=== PATIENT | female | born 1940 | race Caucasian/White ===

== ENCOUNTER 2021-12-02 08:00 | Outpatient (CLI) | payer MEDICARE, OTHER | END 2021-12-02 23:59 | disposition home or self-care (01) | LOC: LAB.N 08:00 | PROVIDERS: ATTEND Family Medicine | DX: N39.0 Urinary tract infection, site not specified (principal) | CPT/HCPCS: 87086 ==

== ENCOUNTER 2022-09-06 08:00 | Outpatient (CLI) | payer MEDICARE, OTHER | END 2022-09-06 23:59 | disposition home or self-care (01) | LOC: LAB.N 08:00 | PROVIDERS: ATTEND Physician Assistant Medical | DX: R31.9 Hematuria, unspecified (principal) | CPT/HCPCS: 87086 ==

== ENCOUNTER 2022-12-13 15:36 | Outpatient (CLI) | payer MEDICARE, OTHER | END 2022-12-13 23:59 | disposition critical access hospital (66) | LOC: EMS 15:36 | DX: M54.50 Low back pain, unspecified (principal); R11.2 Nausea with vomiting, unspecified; I10 Essential (primary) hypertension; F03.90 Unspecified dementia, unspecified severity, without behavioral disturbance, psychotic disturbance, mood disturbance, and anxiety | CPT/HCPCS: A0425; A0429 ==

== ENCOUNTER 2022-12-13 15:55 | Emergency (ER) | payer MEDICARE, OTHER ==
[2022-12-13] MEDS ORDERED: iohexoL-300 100 ML VIAL ONE (16:12)
--- NOTE | 2022-12-13 16:15 | ED Physician Documentation ---
History of Present Illness - Stated complaint Stated Complaint: N/V - Chief complaint Chief Complaint: Abd Pain - History obtained from History obtained from: Patient, EMS - History of Present Illness Timing: Today Pain level max: 2 Pain level now: 2 - Additonal information Additional information: Patient is an 82-year-old female who has dementia and lives at a memory care facility. Reportedly she had emesis x1 today. EMS states that the memory care facility reported a Tmax of 101. Patient is unable to give any history. EMS states the facility stated the patient had back pain as well. The patient states that she sometimes feels back pain but does not feel any back pain currently. When asked again she points down near the sacrum. She does reportedly have a history of a AAA. She has been hypertensive today as well. Unclear if she got her medications today or not because of the emesis. Patient has no complaints currently. She is a DNR. Review of Systems Unable to obtain: Dementia Respiratory: denies: Cough GI: reports: Vomiting. denies: Abdominal Pain, Diarrhea, Hematemesis, Bloody / black stool PD PAST MEDICAL HISTORY - Past Medical History Past Medical History: Yes Cardiovascular: Hypertension, Other (AAA) - Present Medications Home Medications: Ambulatory Orders Medication Instructions Recorded Confirmed Ondansetron Odt [Zofran] 4 mg TL Q6H PRN #10 tablet 12/13/22 - Allergies Allergies/Adverse Reactions: Allergies Allergy/AdvReac Type Severity Reaction Status Date / Time codeine Allergy Anaphylaxis Verified 12/13/22 16:04 Penicillins Allergy Anaphylaxis Verified 12/13/22 16:04 Sulfa (Sulfonamide Allergy Anaphylaxis Verified 12/13/22 16:04 Antibiotics) - Living Situation Living Arrangement: reports: [facility] - Social History Does the pt smoke?: No Does the pt have substance abuse?: No - Family History Family history: reports: Non contributory PD ED PE NORMAL - Vitals Vital signs reviewed: Yes - General General: No acute distress, Well developed/nourished, Other (alert, oriented to person only, baseline per EMS/[facility]) - HEENT HEENT: Atraumatic, PERRL, Moist mucous membranes - Neck Neck: Supple, no meningeal sign - Cardiac Cardiac: RRR, Strong equal pulses - Respiratory Respiratory: No respiratory distress, Clear bilaterally - Abdomen Abdomen: Soft, Non tender, Non distended - Derm Derm: Warm and dry, No rash - Extremities Extremities: No edema - Neuro Neuro: Other (alert, pleasant) Results - Vitals Vitals: Vital Signs - 24 hr 12/13/22 12/13/22 12/13/22 16:00 17:31 17:38 Temperature 36.6 C Heart Rate 87 94 86 Respiratory 20 Rate Blood Pressure 203/88 H 162/82 H O2 Saturation 99 Oxygen O2 Source Room air - Labs Labs: Laboratory Tests 12/13/22 12/13/22 12/13/22 16:12 16:12 16:59 WBC 10.5 RBC 3.66 L Hgb 10.3 L Hct 33.0 L MCV 90.2 MCH 28.1 MCHC 31.2 L RDW 15.7 H Plt Count 224 MPV 9.2 Neut # (Auto) 8.6 H Lymph # (Auto) 1.1 L Cedar # (Auto) 0.6 Eos # (Auto) 0.1 Baso # (Auto) 0.1 Absolute Nucleated RBC 0.00 Nucleated RBC % 0.0 Sodium 139 Potassium 4.0 Chloride 101 Carbon Dioxide 28 Anion Gap 10.0 BUN 26 H Creatinine 1.2 H Estimated GFR (MDRD) 43 L Glucose 112 H Calcium 9.3 Total Bilirubin 0.9 AST 21 ALT 18 Alkaline Phosphatase 106 Total Protein 7.6 Albumin 4.1 Globulin 3.5 Albumin/Globulin Ratio 1.2 Lipase 38 Urine Color YELLOW Urine Clarity HAZY Urine pH 6.5 Ur Specific [place] 1.010 Urine Protein TRACE Urine Glucose (UA) NEGATIVE Urine Ketones NEGATIVE Urine Occult Blood SMALL H Urine Nitrite NEGATIVE Urine Bilirubin NEGATIVE Urine Urobilinogen 0.2 (NORMAL) Ur Leukocyte Esterase TRACE H Urine RBC 6-10 H Urine WBC 4-5 Ur Squamous Epith Cells MOD Squamous H Urine Bacteria Few Ur Microscopic Review INDICATED Urine Culture Comments NOT INDICATED - Rads (name of study) CT angio abd/pelvis Relevant Findings:: Final report received, See rad report PD Medical Decision Making - ED course Complexity details: reviewed results, re-evaluated patient, considered differential, d/w patient ED course: Patient is an 82-year-old female who experienced vomiting earlier today. She did have 1 episode of emesis here. She feels better after Zofran and is tolerating p.o. without difficulty. Her CBC shows a mild anemia. Chemistry does not show any acute abnormalities. Urinalysis appears contaminated. She is not having any symptoms of UTI. CT of the abdomen pelvis was performed, this does show a abdominal aortic aneurysm, over 8 cm in size. She has undergone prior repair of this, but there may be a small endovascular leak. The patient states she does not want to have any further surgeries. I spoke with her son, Epifanio, he states that this has been discussed with her vascular surgeon, Dr. Mendoza at [facility]. He states that she would be a poor surgical candidate and he would not recommend any further surgery on the patient. The patient and family do understand that an endovascular leak and an aortic aneurysm the size will likely kill the patient. Patient is comfortable being DNR, comfort care p er her POLST form and conversation with patient and family. The vomiting appears likely secondary to a viral illness. This document was made in part using voice recognition software. While efforts are made to proofread this document, sound alike and grammatical errors may occur. Departure - Departure Disposition: 01 Home, Self Care Clinical Impression: Vomiting Qualifiers: Vomiting type: unspecified Nausea presence: with nausea Qualified Code(s): R11.2 - Nausea with vomiting, unspecified AAA (abdominal aortic aneurysm) Qualifiers: Abdominal aorta location: unspecified Presence of rupture: unspecified whether ruptured Qualified Code(s): I71.40 - Abdominal aortic aneurysm, without rupture, unspecified Condition: Good Instructions: ED Nausea Vomiting Follow-Up: your,doctor in 1 week [Other] Prescriptions: Ondansetron Odt [Zofran] 4 mg TL Q6H PRN #10 tablet PRN Reason: Nausea / Vomiting Comments: [facility] Please follow-up with your doctor for further care. Your laboratory testing does not show any acute abnormalities today. Your CT scan shows a possible leak around your graft repair and your abdominal aortic aneurysm. I discussed this with your son, Epifanio, he states that this has been discussed with Dr. Mendoza, your vascular surgeon who states that you would not be a surgical candidate. You have indicated you do not want surgery either for this. Your CT reading is below. EXAM: [id number] CT/ABPEANG ([id number]) PROCEDURE: CT angiogram abdomen and pelvis with contrast INDICATIONS: abd/back pain CONTRAST: 100ml omni 300 TECHNIQUE: After the administration of intravenous contrast, 2.5 mm thick sections acquired from the diaphragm to the symphysis. 10 mm maximum-intensity projection (MIP) reformats were then acquired. For radiation dose reduction, the following was used: automated exposure control, adjustment of mA and/or kV according to patient size. COMPARISON: None available FINDINGS: Image quality: Excellent. Large 0.3 x 8.4 cm abdominal aortic aneurysm excluded by aortobiiliac endograft is noted to. There is enhancement in the excluded aneurysm, consistent with endoleak. It is uncertain if the endoleak arises from the graft itself or from collateral [place] vessels. Termination of the graft and the iliac vessels appears appropriate. Appropriate flow present in the common femoral and superficial femoral arteries proximally. Otherwise, degenerative disc disease and arthropathy is noted lower lumbar spine. Multiple diverticuli impression the sigmoid colon without evidence of diverticulitis. The visualized visceral organs are unremarkable. IMPRESSION: Patent aortobiiliac endograft. Excluded large abdominal aortic aneurysm does show internal enhancement, consistent with endoleak either arising from the graft itself or collateral [place] vessels. Discharge Date/Time: 12/13/22 19:09
[2022-12-13 16:19] LABS: BASOPHILS # (AUTO) 0.1 10^3/uL (0.0-0.1); BASOPHILS % (AUTO) 0.5 %; EOSINOPHILS # (AUTO) 0.1 10^3/uL (0.0-0.7); HGB - HEMOGLOBIN 10.3 g/dL (12.0-16.0); LYMPHOCYTES # (AUTO) 1.1 10^3/uL (1.5-3.5); LYMPHOCYTES % (AUTO) 10.5 %; MEAN CORPUSCULAR HEMOGLOBIN 28.1 pg (27.0-31.0); MEAN CORPUSCULAR HGB CONC 31.2 g/dL (32.0-36.0); MEAN CORPUSCULAR VOLUME 90.2 fL (81.0-99.0); MEAN PLATELET VOLUME 9.2 fL (7.9-10.8); MONOCYTES # (AUTO) 0.6 10^3/uL (0.0-1.0); MONOCYTES % (AUTO) 6.1 %; NEUTROPHILS # (AUTO) 8.6 10^3/uL (1.5-6.6); NEUTROPHILS % (AUTO) 81.7 %; PLT - PLATELET COUNT 224 10^3/uL (130-450); RED BLOOD COUNT 3.66 10^6/uL (4.20-5.40); RED CELL DISTRIBUTION WIDTH 15.7 % (12.0-15.0); WHITE BLOOD COUNT 10.5 x10^3/uL (4.8-10.8)
[2022-12-13 16:35] LABS: ALBUMIN 4.1 g/dL (3.2-5.5); ALBUMIN/GLOBULIN RATIO 1.2 (1.0-2.2); BILIRUBIN,TOTAL 0.9 mg/dL (0.2-1.0); CALCIUM 9.3 mg/dL (8.5-10.3); CREATININE 1.2 mg/dL (0.4-1.0); TOTAL PROTEIN 7.6 g/dL (6.7-8.2)
[2022-12-13] MEDS ORDERED: iohexoL-300 100 ML VIAL IVP ONE (16:59)
[2022-12-13 17:11] LABS: BILIRUBIN,URINE NEGATIVE (NEGATIVE); GLUCOSE, URINE (UA) NEGATIVE (NEGATIVE); KETONES,URINE (UA) NEGATIVE (NEGATIVE); LEUKOCYTE ESTERASE, URINE TRACE (NEGATIVE); NITRITE,URINE NEGATIVE (NEGATIVE); OCCULT BLOOD,URINE SMALL (NEGATIVE); PH,URINE 6.5 PH (5.0-7.5); PROTEIN,URINE TRACE mg/dL (NEGATIVE); UROBILINOGEN,URINE 0.2 (NORMAL) E.U./dL (NORMAL)
[2022-12-13 17:13] LABS: CLARITY,URINE HAZY (CLEAR)
[2022-12-13] MEDS ORDERED: METOPROLOL 5 MG/5 ML VIAL IVP STA (17:18)
[2022-12-13 17:25] LABS: BACTERIA,URINE Few /HPF (None Seen); SQUAMOUS EPITHELIAL CELL,UR MOD Squamous (<= Few)
--- NOTE | 2022-12-13 17:27 | CT Report ---
PROCEDURE: CT angiogram abdomen and pelvis with contrast INDICATIONS: abd/back pain CONTRAST: 100ml omni 300 TECHNIQUE: After the administration of intravenous contrast, 2.5 mm thick sections acquired from the diaphragm t o the symphysis. 10 mm maximum-intensity projection (MIP) reformats were then acquired. For radiati on dose reduction, the following was used: automated exposure control, adjustment of mA and/or kV ac cording to patient size. COMPARISON: None available FINDINGS: Image quality: Excellent. Large 0.3 x 8.4 cm abdominal aortic aneurysm excluded by aortobiiliac endograft is noted to. There is enhancement in the excluded aneurysm, consistent with endoleak. It is uncertain if the endoleak lucie es from the graft itself or from collateral [place] vessels. Termination of the graft and the iliac ve ssels appears appropriate. Appropriate flow present in the common femoral and superficial femoral art eries proximally. Otherwise, degenerative disc disease and arthropathy is noted lower lumbar spine. Multiple diverticul i impression the sigmoid colon without evidence of diverticulitis. The visualized visceral organs are unremarkable. IMPRESSION: Patent aortobiiliac endograft. Excluded large abdominal aortic aneurysm does show internal enhancement, consistent with endoleak e ither arising from the graft itself or collateral [place] vessels. Reviewed by: Eduin Gee MD on 12/13/2022 4:25 PM [facility] Approved by: Eduin Gee MD on 12/13/2022 4:25 PM [facility] Station ID: [id number]
[2022-12-13 17:32] VITALS: BP 162/82
[2022-12-13] MEDS ORDERED: ONDANSETRON 4 MG/2 ML VIAL IVP STA (17:52)
== END 2022-12-13 19:09 | disposition home or self-care (01) ==
LOC: EDUNIT# → ED 15:55
DX: I71.40 Abdominal aortic aneurysm, without rupture, unspecified (principal); R11.2 Nausea with vomiting, unspecified; F03.90 Unspecified dementia, unspecified severity, without behavioral disturbance, psychotic disturbance, mood disturbance, and anxiety; I10 Essential (primary) hypertension
CPT/HCPCS: 36415; 74174; 80053; 81001; 83690; 85025; 96374; 96375; 99284; Q9967; 81003; 87086

== ENCOUNTER 2022-12-13 19:01 | Outpatient (CLI) | payer MEDICARE, OTHER | END 2022-12-13 23:59 | disposition home or self-care (01) | LOC: EMS 19:01 | PROVIDERS: ATTEND Emergency Medicine | DX: R41.0 Disorientation, unspecified (principal); I10 Essential (primary) hypertension; R11.10 Vomiting, unspecified; F03.90 Unspecified dementia, unspecified severity, without behavioral disturbance, psychotic disturbance, mood disturbance, and anxiety | CPT/HCPCS: A0425; A0428 ==

== ENCOUNTER 2023-01-09 10:44 | Outpatient (CLI) | payer MEDICARE, OTHER ==
[2023-01-09] MEDS ORDERED: iohexoL-300 100 ML VIAL ONE (10:55)
[2023-01-09] MEDS ORDERED: iohexoL-300 100 ML VIAL IVP ONE (11:47)
--- NOTE | 2023-01-09 14:04 | CT Report ---
PROCEDURE: IVP INDICATIONS: HIST OF BLADDER CA CONTRAST: 140ml omni 300 TECHNIQUE: After the administration of intravenous contrast, 5 mm thick sections acquired from the diaphragms to the symphysis. 5 mm thick coronal and sagittal reformats were acquired. For radiation dose reducti on, the following was used: automated exposure control, adjustment of mA and/or kV according to yury ent size. COMPARISON: 12/13/2022 FINDINGS: Image quality: Excellent. Urinary system: The right kidney is diminutive. The left is normal size the right has a mildly delaye d nephrogram and contrast excretion. Nonenhancing 0.9 cm left posterior cortical renal cyst. No suspi cious enhancing masses or complex cysts. No hydronephrosis, retained intrarenal calculus, hydroureter , or ureteral calculus. No calculi in the undistended precontrast urinary bladder. No visible wall th ickening in the partially filled urinary bladder. OTHER Lung bases and heart: Descending thoracic aorta is ectatic measuring 3.4 cm in diameter. Lung bases a re clear. Heart is enlarged and there is moderate coronary artery calcification and aortic valvular c alcification. Liver: No masses. Gallbladder and biliary tree: Normal. Spleen: No splenomegaly. Pancreas: Normal. Adrenals: No nodules. Bowel and peritoneum: No bowel distension. No pathologic free fluid. Extensive sigmoid diverticulosis . Abdominal Lymph nodes: A 7 mm aortocaval node, 06/22 is nonspecific. No other retroperitoneal adenopa thy. Vessels: There is a large, known abdominal aortic aneurysm. The hernia sac measures 9.3 cm in AP diam eter, 9.5 cm transversely, and 13.6 cm in the CC direction. It begins at the level of the renal arter ies. An aortobiiliac stent begins above the level of the renal arteries which are stented. There is a lso an SMA origin stent. There is an oblong focus of contrast enhancement within the hernia sac, like ly arising from the left renal stent origin or a feeding lumbar vessel. Reproductive organs: The uterus is absent. Pelvic Lymph nodes: No enlarged lymph nodes or pelvic masses. Bones: No aggressive osseous abnormality. Other: None. IMPRESSION: 1. There has been increase in AP and transverse diameter of the abdominal aortic aneurysm with a know n endoleak (type I or type II) since the prior study by 8 mm AP diameter and 7 mm transversely. This is significant given short (4 weeks) time interval. Urgent vascular or interventional surgery consult is recommended. 2. Nonspecific, 7 mm aortocaval lymph node. No other suspicious adenopathy in the abdomen or pelvis. 3. Right renal atrophy and delayed function suggesting significantly decreased blood flow secondary t o stent placement. 4. Report alert called to the office of the ordering provider. Reviewed by: Sarah Brooks MD on 01/09/2023 2:02 PM PDT Approved by: Sarah Brooks MD on 01/09/2023 2:02 PM PDT Station ID: [id number]
== END 2023-01-09 10:45 | disposition home or self-care (01) ==
LOC: DI 10:44
PROVIDERS: ATTEND Urology
DX: I71.40 Abdominal aortic aneurysm, without rupture, unspecified (principal); N26.1 Atrophy of kidney (terminal)
CPT/HCPCS: 74178; Q9967

== ENCOUNTER 2023-01-09 10:44 | Outpatient (CLI) | payer MEDICARE, OTHER ==
[2023-01-09 11:04] LABS: BILIRUBIN,URINE NEGATIVE (NEGATIVE); GLUCOSE, URINE (UA) NEGATIVE (NEGATIVE); KETONES,URINE (UA) TRACE mg/dL (NEGATIVE); LEUKOCYTE ESTERASE, URINE SMALL (NEGATIVE); NITRITE,URINE NEGATIVE (NEGATIVE); OCCULT BLOOD,URINE MODERATE (NEGATIVE); PROTEIN,URINE 30 mg/dL (NEGATIVE); UROBILINOGEN,URINE 1 (NORMAL) E.U./dL (NORMAL)
[2023-01-09 11:18] LABS: BACTERIA,URINE Few /HPF (None Seen); CLARITY,URINE SL. CLOUDY (CLEAR); SQUAMOUS EPITHELIAL CELL,UR MANY Squamous (<= Few)
== END 2023-01-09 10:45 | disposition home or self-care (01) ==
LOC: LAB 10:44
PROVIDERS: ATTEND Physician Assistant Medical
DX: R31.9 Hematuria, unspecified (principal)
CPT/HCPCS: 81001; 87086

== ENCOUNTER 2023-04-22 13:16 | Outpatient (CLI) | payer MEDICARE, OTHER | END 2023-04-22 13:17 | disposition critical access hospital (66) | LOC: EMS 13:16 | DX: R42 Dizziness and giddiness (principal); R63.8 Other symptoms and signs concerning food and fluid intake | CPT/HCPCS: A0425 ×2 ==

== ENCOUNTER 2023-04-22 13:38 | Emergency (ER) | payer MEDICARE, OTHER ==
[2023-04-22] MEDS ORDERED: SODIUM CHLORIDE 0.9% 1,000 ML IV STA ×2 (13:53→16:08)
--- NOTE | 2023-04-22 14:07 | ED Physician Documentation ---
History of Present Illness - Stated complaint Stated Complaint: ABD PX - Additonal information Additional information: 82-year-old female who has past medical history Mo significant for dementia and hypertension was brought to the emergency department via EMS from [facility]. Reportedly she had been complaining of not feeling well for several days with some decreased oral intake. Reportedly no fevers, vomiting abdominal pain or diarrhea. History is limited due to dementia but she is very well-appearing here in the emergency department. She has no fever, tachycardia or hypotension. POLST form indicates patient is a DNR with limited interventions. I spoke with patient's son Epifanio at the bedside. He indicates to me that the patient does have a known history of bladder cancer as well as an enlarging AAA measuring at 7 cm. Due to the enlargement of the AAA the decision was made to defer any surgery for bladder cancer. Review of Systems Unable to obtain: Dementia Constitutional: denies: Fever, Chills PD PAST MEDICAL HISTORY - Past Medical History Cardiovascular: Hypertension, Other (AAA) - Present Medications Home Medications: Ambulatory Orders Medication Instructions Recorded Confirmed Ondansetron Odt [Zofran] 4 mg TL Q6H PRN #10 tablet 12/13/22 Ciprofloxacin HCl [Cipro] 500 mg PO BID #20 tablet 04/22/23 Ondansetron Odt [Zofran] 4 mg TL Q6H PRN #10 tablet 04/22/23 - Allergies Allergies/Adverse Reactions: Allergies Allergy/AdvReac Type Severity Reaction Status Date / Time codeine Allergy Anaphylaxis Verified 04/22/23 13:53 Penicillins Allergy Anaphylaxis Verified 04/22/23 13:53 Sulfa (Sulfonamide Allergy Anaphylaxis Verified 04/22/23 13:53 Antibiotics) - Social History Does the pt smoke?: No Does the pt have substance abuse?: No PD ED PE NORMAL - General General: No acute distress, Well developed/nourished. No: Alert and oriented X 3 (Confused to place but not situation or time.) - HEENT HEENT: Atraumatic, Moist mucous membranes - Neck Neck: Supple, no meningeal sign, No adenopathy - Cardiac Cardiac: RRR, No murmur - Respiratory Respiratory: No respiratory distress, Clear bilaterally - Abdomen Abdomen: Normal bowel sounds, Soft - Back Back: No CVA TTP - Derm Derm: Normal color, Warm and dry, No rash - Extremities Extremities: No deformity - Neuro Neuro: Alert and oriented X 3, lead recreation assistant 2-12 intact Eye Opening: Spontaneous Motor: Obeys Commands Verbal: Oriented GCS Score: 15 Results - Vitals Vitals: Vital Signs - 24 hr 04/22/23 04/22/23 04/22/23 13:54 14:26 16:00 Temperature 36.4 C L Heart Rate 77 81 71 Respiratory 18 16 16 Rate Blood Pressure 139/65 H 100/72 157/72 H O2 Saturation 99 100 98 04/22/23 04/22/23 19:43 20:07 Temperature 36.4 C L Heart Rate 69 77 Respiratory 18 18 Rate Blood Pressure 169/67 H 169/74 H O2 Saturation 100 97 Oxygen O2 Source Room air - Labs Labs: Laboratory Tests 04/22/23 04/22/23 04/22/23 14:04 14:04 14:24 WBC 11.5 H RBC 3.89 L Hgb 10.6 L Hct 33.5 L MCV 86.1 MCH 27.2 MCHC 31.6 L RDW 15.6 H Plt Count 359 MPV 9.0 Neut # (Auto) 9.5 H Lymph # (Auto) 1.1 L Gooding # (Auto) 0.6 Eos # (Auto) 0.2 Baso # (Auto) 0.1 Absolute Nucleated RBC 0.00 Nucleated RBC % 0.0 Sodium 134 L Potassium 3.6 Chloride 96 L Carbon Dioxide 29 Anion Gap 9.0 BUN 65 H Creatinine 1.8 H Estimated GFR (MDRD) 27 L Glucose 227 H Calcium 10.1 Total Bilirubin 0.7 AST 22 ALT 16 Alkaline Phosphatase 115 Total Protein 7.7 Albumin 4.0 Globulin 3.7 Albumin/Globulin Ratio 1.1 Lipase 60 Urine Color Urine Clarity Urine pH Ur Specific [place] Urine Protein Urine Glucose (UA) Urine Ketones Urine Occult Blood Urine Nitrite Urine Bilirubin Urine Urobilinogen Ur Leukocyte Esterase Urine RBC Urine WBC Urine WBC Clumps Ur Epithelial Cells Ur Squamous Epith Cells Amorphous Sediment Urine Bacteria Ur Microscopic Review Urine Culture Comments Nasal Adenovirus (PCR) NOT DETECTED Nasal B. parapertussis DNA (PCR) NOT DETECTED Nasal Coronavir 229E PCR NOT DETECTED Nasal Coronavir HKU1 PCR NOT DETECTED Nasal Coronavir NL63 PCR NOT DETECTED Nasal Coronavir OC43 PCR NOT DETECTED Nasal Enterovir/Rhinovir PCR NOT DETECTED Nasal Influenza B PCR NOT DETECTED Nasal Influenza A PCR NOT DETECTED Nasal Parainfluen 1 PCR NOT DETECTED Nasal Parainfluen 2 PCR NOT DETECTED Nasal Parainfluen 3 PCR NOT DETECTED Nasal Parainfluen 4 PCR NOT DETECTED Nasal RSV (PCR) NOT DETECTED Nasal B.pertussis DNA PCR NOT DETECTED Nasal C.pneumoniae (PCR) NOT DETECTED Boris Human Metapneumo PCR NOT DETECTED Nasal M.pneumoniae (PCR) NOT DETECTED Nasal SARS-CoV-2 (PCR) NOT DETECTED 04/22/23 17:51 WBC RBC Hgb Hct MCV MCH MCHC RDW Plt Count MPV Neut # (Auto) Lymph # (Auto) Gooding # (Auto) Eos # (Auto) Baso # (Auto) Absolute Nucleated RBC Nucleated RBC % Sodium Potassium Chloride Carbon Dioxide Anion Gap BUN Creatinine Estimated GFR (MDRD) Glucose Calcium Total Bilirubin AST ALT Alkaline Phosphatase Total Protein Albumin Globulin Albumin/Globulin Ratio Lipase Urine Color YELLOW Urine Clarity HAZY Urine pH 5.0 Ur Specific [place] 1.025 Urine Protein TRACE Urine Glucose (UA) NEGATIVE Urine Ketones NEGATIVE Urine Occult Blood LARGE H Urine Nitrite NEGATIVE Urine Bilirubin NEGATIVE Urine Urobilinogen 0.2 (NORMAL) Ur Leukocyte Esterase TRACE H Urine RBC 11-25 H Urine WBC 11-25 H Urine WBC Clumps PRESENT Ur Epithelial Cells FEW Transitional Ur Squamous Epith Cells RARE Squamous Amorphous Sediment Few Urine Bacteria Few Ur Microscopic Review INDICATED Urine Culture Comments INDICATED Nasal Adenovirus (PCR) Nasal B. parapertussis DNA (PCR) Nasal Coronavir 229E PCR Nasal Coronavir HKU1 PCR Nasal Coronavir NL63 PCR Nasal Coronavir OC43 PCR Nasal Enterovir/Rhinovir PCR Nasal Influenza B PCR Nasal Influenza A PCR Nasal Parainfluen 1 PCR Nasal Parainfluen 2 PCR Nasal Parainfluen 3 PCR Nasal Parainfluen 4 PCR Nasal RSV (PCR) Nasal B.pertussis DNA PCR Nasal C.pneumoniae (PCR) Boris Human Metapneumo PCR Nasal M.pneumoniae (PCR) Nasal SARS-CoV-2 (PCR) - Rads (name of study) cxr Relevant Findings:: Final report received (No acute cardiopulmonary process) Ct abd Relevant Findings:: Final report received (Redemonstrated large abdominal aortic aneurysm status post aorto iliac stent grafting. There has been increase in size of aneurysm since prior exam. No evidence of mechanical small bowel obstruction.) PD Medical Decision Making - ED course Complexity details: reviewed results, re-evaluated patient, d/w patient, d/w family ED course: 82-year-old female is brought to the emergency department from [facility] for evaluation of several days abdominal pain, nausea some vomiting and generalized fatigue. History is limited from patient due to her history of dementia. Most of the history was obtained from the son. On presentation to the emergency department the patient was afebrile. She was normotensive and without tachycardia. On exam there was some mild tenderness elicited of the abdomen. I did obtain CBC electrolytes which per my interpretation showed no acute worrisome derangement of the CBC. However her electrolytes showed modestly elevated BUN and creatinine of 65 and 1.8. This is in comparison to BUN of 26 and 1.2 in November of this year. For her acute kidney injury she was administered 2 L of IV fluids. Subsequently a urinalysis was completed and it was consistent with acute cystitis. Given the history of penicillin allergy she was administered Cipro here in the emergency department. Subsequently a CT of the abdomen was completed and it does show that she has an enlarging AAA aneurysm now measuring up to 9 cm where it had previously been only about 7 cm. Patient's son at the bedside indicated to me that previously he had been told that no further intervention was possible for his mom's aneurysm. In fact it was due to the aneurysm that they were unable to do surgery for her bladder cancer. Subsequently I spoke with the son at the bedside about patient's acute kidney injury. He would like the patient to be hospitalized overnight to improve kidney function if possible. CT imaging was sent to [facility]. I spoke on the phone with Dr. Frank Mendoza her vascular surgeon. He was able to confirm to me that though the aneurysm is increasing in size, the patient's son and D [facility] [employer] did not want further surgical intervention as the risks likely outweigh the benefits. I read discussed this position statement with her son Epifanio. He again indicates that he did not want vascular intervention for the increasing AAA. 2015: I spoke with Dr. Avendaño the telehospitalist who evaluated the chart and the labs. He did not feel that the acute kidney injury and dehydration were sufficient to warrant admission to the hospital. The patient has been given 2 L of crystalloid in the emergency department. He feels that she should be discharged on Cipro and have her labs rechecked next week. I discussed the plan with the patient's son who is in agreement. She will be discharged back to [facility] via BLS. Departure - Departure Disposition: Home, Self Care Clinical Impression: PATRICK (acute kidney injury) Acute cystitis Qualifiers: Hematuria presence: without hematuria Qualified Code(s): N30.00 - Acute cystitis without hematuria AAA (abdominal aortic aneurysm) without rupture Qualifiers: Abdominal aorta location: unspecified Qualified Code(s): I71.40 - Abdominal aortic aneurysm, without rupture, unspecified Dementia Qualifiers: Dementia type: unspecified type Dementia severity: moderate Dementia behavioral or psychological symptom: without behavioral, psychotic, or mood disturbance or anxiety Qualified Code(s): F03.B0 - Unspecified dementia, moderate, without behavioral disturbance, psychotic disturbance, mood disturbance, and anxiety Condition: Stable Record reviewed to determine appropriate education?: Yes Prescriptions: Ciprofloxacin HCl [Cipro] 500 mg PO BID #20 tablet Ondansetron Odt [Zofran] 4 mg TL Q6H PRN #10 tablet PRN Reason: Nausea / Vomiting Comments: You are seen tonight in the emergency department for several days of belly pain and nausea. You do have a history of bladder cancer as well as a AAA. The CT scan completed today of your abdomen does show that the AAA has increased in size. However after thorough discussion with Epifanio her son as well as with the vascular surgeon Dr. Mendoza at [facility] the decision is made not to have any further interventions of her AAA. She does have a urinary tract infection and a prescription for Cipro has been sent to the [facility] in [place]. A prescription for Zofran and nausea medicine has also been sent there. Her labs today show that she has been fairly dehydrated and because of this she has an elevated BUN and creatinine. These are markers of kidney function. She did receive 2 L of IV fluids today in the emergency department but she should be encouraged to take frequent sips of liquids at [facility] and her labs should be rechecked next week. Because of her advancing age, history of bladder cancer as well as dementia and a AAA that appears to be enlarging in size we have placed a palliative care consult in order to help talk about longer-term care goals and management.
[2023-04-22 14:14] LABS: BASOPHILS # (AUTO) 0.1 10^3/uL (0.0-0.1); BASOPHILS % (AUTO) 0.5 %; EOSINOPHILS # (AUTO) 0.2 10^3/uL (0.0-0.7); EOSINOPHILS % (AUTO) 1.3 %; HCT - HEMATOCRIT 33.5 % (37.0-47.0); HGB - HEMOGLOBIN 10.6 g/dL (12.0-16.0); LYMPHOCYTES # (AUTO) 1.1 10^3/uL (1.5-3.5); LYMPHOCYTES % (AUTO) 9.7 %; MEAN CORPUSCULAR HEMOGLOBIN 27.2 pg (27.0-31.0); MEAN CORPUSCULAR HGB CONC 31.6 g/dL (32.0-36.0); MEAN CORPUSCULAR VOLUME 86.1 fL (81.0-99.0); MONOCYTES # (AUTO) 0.6 10^3/uL (0.0-1.0); MONOCYTES % (AUTO) 5.6 %; NEUTROPHILS # (AUTO) 9.5 10^3/uL (1.5-6.6); NEUTROPHILS % (AUTO) 82.6 %; PLT - PLATELET COUNT 359 10^3/uL (130-450); RED BLOOD COUNT 3.89 10^6/uL (4.20-5.40); RED CELL DISTRIBUTION WIDTH 15.6 % (12.0-15.0); WHITE BLOOD COUNT 11.5 x10^3/uL (4.8-10.8)
[2023-04-22 14:25] LABS: ALBUMIN/GLOBULIN RATIO 1.1 (1.0-2.2); BILIRUBIN,TOTAL 0.7 mg/dL (0.2-1.0); CALCIUM 10.1 mg/dL (8.5-10.3); CREATININE 1.8 mg/dL (0.6-1.3); POTASSIUM 3.6 mmol/L (3.5-4.5); TOTAL PROTEIN 7.7 g/dL (6.4-8.9)
--- NOTE | 2023-04-22 14:37 | XRAY Report ---
PROCEDURE: Chest 1 View X-Ray INDICATIONS: not feeling well TECHNIQUE: One view of the chest was acquired. COMPARISON: None. FINDINGS: Surgical changes and devices: None. Lungs and pleura: No pleural effusions or pneumothorax. Lungs are clear. Mediastinum: Mediastinal contours appear normal. Heart size is normal. Bones and chest wall: No suspicious bony lesions. Overlying soft tissues appear unremarkable. IMPRESSION: No acute cardiopulmonary process. Reviewed by: Toni Estevez MD on 04/22/2023 2:36 PM PDT Approved by: Toni Estevez MD on 04/22/2023 2:36 PM PDT Station ID: [id number]
[2023-04-22] MEDS ORDERED: ONDANSETRON 4 MG/2 ML VIAL IVP STA (14:58)
[2023-04-22 15:55] LABS: B. PARAPERTUSSIS- RESP PCR PAN NOT DETECTED; B. PERTUSSIS- RESP PCR PANEL NOT DETECTED; C. PNEUMONIAE- RESP PCR PANEL NOT DETECTED; CORONAVIRUS 229E-RESP PCR NOT DETECTED; CORONAVIRUS HKU1-RESP PCR NOT DETECTED; CORONAVIRUS NL63-RESP PCR NOT DETECTED; CORONAVIRUS OC43-RESP PCR NOT DETECTED; HUMAN METAPNEUMOVIRUS NOT DETECTED; INFLUENZA A- RESP PCR PANEL NOT DETECTED; INFLUENZA B - RESP PCR PANEL NOT DETECTED; M. PNEUMONIAE- RESP PCR PANEL NOT DETECTED; PARAINFLUENZA VIRUS 1 NOT DETECTED; PARAINFLUENZA VIRUS 2 NOT DETECTED; PARAINFLUENZA VIRUS 3 NOT DETECTED; PARAINFLUENZA VIRUS 4 NOT DETECTED; RHINOVIRUS/ENTEROVIRUS NOT DETECTED; RSV- RESP PCR PANEL NOT DETECTED; SARS-CoV-2 -RESP PCR PANEL NOT DETECTED
--- NOTE | 2023-04-22 17:07 | CT Report ---
PROCEDURE: ABDOMEN/PELVIS WO INDICATIONS: abdominal pain and vomiting TECHNIQUE: A CT scan of the abdomen and pelvis was performed without the use of intravenous contrast. Images we re recorded and evaluated at appropriate window settings. Reformats: coronal and sagittal. For radiat ion dose reduction, the following was used: automated exposure control, adjustment of mA and/or kV ac cording to patient size. COMPARISON: CT IVP 01/09/2023 FINDINGS: Visualized lung bases: No pleural effusion. Liver and biliary tree: Unremarkable noncontrast appearance. Gallbladder: No radiopaque cholelithiasis. Spleen: Unremarkable noncontrast appearance. Pancreas: Unremarkable noncontrast appearance. Adrenal glands: Unremarkable noncontrast appearance. Kidneys and ureters: No hydronephrosis. Right kidney appears atrophic as before. Gastrointestinal tract: No evidence of mechanical small bowel obstruction. Severe predominantly sigmo id colonic diverticulosis without evidence of acute diverticulitis. Peritoneal cavity: No free air or free fluid. Bladder: No stones visualized. Pelvic organs: The uterus is not visualized and is presumed surgically absent. Vasculature: Redemonstrated abdominal aortic aneurysm status post aortobiiliac stent graft placement. Interval increase in size of the aneurysm, for example 9.1 cm AP measurement the sagittal plane, pre viously 8.3 cm remeasured similarly. In the coronal plane, maximum transverse dimension of 11.0 cm, p reviously 9.4 cm remeasured similarly. Musculoskeletal: Degenerative change of the spine. IMPRESSION: 1. Redemonstrated large abdominal aortic aneurysm status post aortobiiliac stent grafting. There has been an increase in size of the aneurysm since the prior exam. Endoleak visualized on the prior study is not well visualized on this noncontrast exam. Vascular surgical consultation may be helpful to di rect further management. 2. No evidence of mechanical small bowel obstruction. Reviewed by: Chalo Milian MD on 04/22/2023 5:05 PM PDT Approved by: Chalo Milian MD on 04/22/2023 5:05 PM PDT Station ID: [id number]
[2023-04-22 18:02] LABS: BILIRUBIN,URINE NEGATIVE (NEGATIVE); GLUCOSE, URINE (UA) NEGATIVE (NEGATIVE); KETONES,URINE (UA) NEGATIVE (NEGATIVE); LEUKOCYTE ESTERASE, URINE TRACE (NEGATIVE); NITRITE,URINE NEGATIVE (NEGATIVE); OCCULT BLOOD,URINE LARGE (NEGATIVE); PROTEIN,URINE TRACE mg/dL (NEGATIVE); UROBILINOGEN,URINE 0.2 (NORMAL) E.U./dL (NORMAL)
[2023-04-22 18:15] LABS: CLARITY,URINE HAZY (CLEAR); SQUAMOUS EPITHELIAL CELL,UR RARE Squamous (<= Few); WBC CLUMPS,URINE PRESENT
[2023-04-22 18:16] LABS: AMORPHOUS SEDIMENT,UR Few /LPF; BACTERIA,URINE Few /HPF (None Seen); EPITHELIAL CELLS,UR FEW Transitional /HPF (<= Few)
[2023-04-22] MEDS ORDERED: CIPROFLOXACIN 250 MG TABLET PO STA (18:36)
[2023-04-23 10:57] VITALS: BP 169/74; O2SAT 100
== END 2023-04-22 20:58 | disposition home or self-care (01) ==
LOC: EDUNIT# → ED 13:38
DX: N30.00 Acute cystitis without hematuria (principal); N17.9 Acute kidney failure, unspecified; F03.B0 Unspecified dementia, moderate, without behavioral disturbance, psychotic disturbance, mood disturbance, and anxiety; I71.40 Abdominal aortic aneurysm, without rupture, unspecified; I10 Essential (primary) hypertension; Z66 Do not resuscitate; Z20.822 Contact with and (suspected) exposure to COVID-19
CPT/HCPCS: 36415; 71045; 74176; 80053; 81001; 83690; 85025; 87086; 87633; 96361; 96374; 99284; A9270; 81003

== ENCOUNTER 2023-04-22 20:57 | Outpatient (CLI) | payer MEDICARE, OTHER | END 2023-04-22 20:58 | disposition home or self-care (01) | LOC: EMS 20:57 | PROVIDERS: ATTEND Registered Nurse | DX: R41.0 Disorientation, unspecified (principal); E86.0 Dehydration | CPT/HCPCS: A0425; A0428 ==

== ENCOUNTER 2023-10-16 09:07 | Outpatient (CLI) | payer MEDICARE, OTHER ==
[2023-10-16 11:53] LABS: BASOPHILS # (AUTO) 0.1 10^3/uL (0.0-0.1); BASOPHILS % (AUTO) 0.8 %; EOSINOPHILS # (AUTO) 0.3 10^3/uL (0.0-0.7); EOSINOPHILS % (AUTO) 3.5 %; HCT - HEMATOCRIT 38.2 % (37.0-47.0); HGB - HEMOGLOBIN 11.4 g/dL (12.0-16.0); LYMPHOCYTES # (AUTO) 1.7 10^3/uL (1.5-3.5); LYMPHOCYTES % (AUTO) 22.1 %; MEAN CORPUSCULAR HEMOGLOBIN 27.6 pg (27.0-31.0); MEAN CORPUSCULAR HGB CONC 29.8 g/dL (32.0-36.0); MEAN CORPUSCULAR VOLUME 92.5 fL (81.0-99.0); MEAN PLATELET VOLUME 9.7 fL (7.9-10.8); MONOCYTES # (AUTO) 0.6 10^3/uL (0.0-1.0); MONOCYTES % (AUTO) 7.5 %; NEUTROPHILS % (AUTO) 65.8 %; PLT - PLATELET COUNT 313 10^3/uL (130-450); RED BLOOD COUNT 4.13 10^6/uL (4.20-5.40); RED CELL DISTRIBUTION WIDTH 17.2 % (12.0-15.0); WHITE BLOOD COUNT 7.5 x10^3/uL (4.8-10.8)
[2023-10-16 12:23] LABS: ESTIMATED AVERAGE GLUCOSE 114 mg/dL (70-100); HEMOGLOBIN A1c% 5.6 % (4.27-6.07)
[2023-10-16 12:26] LABS: ALBUMIN/GLOBULIN RATIO 1.3 (1.0-2.2); ALKALINE PHOSPHATASE 109 IU/L (42-121); ALT ALANINE AMINOTRANSFERASE 13 IU/L (10-60); AST ASPARTATE AMINOTRANSFERASE 17 IU/L (10-42); BILIRUBIN,TOTAL 0.8 mg/dL (0.2-1.0); BUN - BLOOD UREA NITROGEN 31 mg/dL (6-20); CALCIUM 9.7 mg/dL (8.5-10.3); CARBON DIOXIDE - CO2 31 mmol/L (21-32); CHLORIDE 101 mmol/L (101-111); CHOL/HDL RATIO 5.7 (<4.4); CHOLESTEROL 281 mg/dL; CREATININE 1.4 mg/dL (0.6-1.3); GFR - MDRD 36 (>89); GLUCOSE 194 mg/dL (74-104); HDL CHOLESTEROL 49 mg/dL; LDL CHOLESTEROL,CALCULATED 196 mg/dL; POTASSIUM 3.9 mmol/L (3.5-4.5); SODIUM 138 mmol/L (135-145); TOTAL PROTEIN 7.2 g/dL (6.4-8.9); TRIGLYCERIDES 178 mg/dL (48-352); VLDL CHOLESTEROL 36 mg/dL
[2023-10-16 12:37] LABS: THYROID STIMULATING HORMONE 1.47 uIU/mL (0.34-5.60)
== END 2023-10-16 09:08 | disposition home or self-care (01) ==
LOC: LAB.N 09:07
PROVIDERS: ATTEND Family Medicine
DX: I12.9 Hypertensive chronic kidney disease with stage 1 through stage 4 chronic kidney disease, or unspecified chronic kidney disease (principal); N18.30 Chronic kidney disease, stage 3 unspecified; R73.09 Other abnormal glucose; E78.00 Pure hypercholesterolemia, unspecified; D50.9 Iron deficiency anemia, unspecified; G30.9 Alzheimer's disease, unspecified
CPT/HCPCS: 36415; 80053; 80061; 83036; 83721; 84443; 85025

== ENCOUNTER 2023-11-10 18:07 | Outpatient (CLI) | payer MEDICARE, OTHER | END 2023-11-10 23:59 | disposition home or self-care (01) | LOC: EMS 18:07 | DX: U07.1 COVID-19 (principal) | CPT/HCPCS: A0425; A0429 ==

== ENCOUNTER 2023-11-10 18:27 | Emergency (ER) | payer MEDICARE, OTHER ==
--- NOTE | 2023-11-10 18:48 | ED Physician Documentation ---
History of Present Illness - Stated complaint Stated Complaint: HIGH BP/C+ - Chief complaint Chief Complaint: General - History obtained from History obtained from: Family - Additonal information Additional information: This is a javier but demented 83-year-old woman who presents by ambulance. She was diagnosed with COVID at the facility yesterday and it sounds like today they were checking her blood pressure and it was on the high side. She is demented but has no complaints. Specifically denying chest pain or trouble breathing. Also no abdominal pain. PD PAST MEDICAL HISTORY - Past Medical History Cardiovascular: Hypertension, Other Neuro: Dementia - Present Medications Home Medications: Ambulatory Orders Medication Instructions Recorded Confirmed Ondansetron Odt [Zofran] 4 mg TL Q6H PRN #10 tablet 12/13/22 11/10/23 Acetaminophen [Tylenol] 1 tab PO DAILY 11/10/23 11/10/23 Aspirin [Aspirin Regimen] 1 tab PO DAILY 11/10/23 11/10/23 Atorvastatin [Lipitor] 1 tab PO DAILY 11/10/23 11/10/23 Cyanocobalamin (Vitamin B-12) 1 tab PO DAILY 11/10/23 11/10/23 [Vitamin B12] Ferrous Sulfate [Feosol] 1 tab PO DAILY 11/10/23 11/10/23 Lactobacillus Acidophilus 1 tab PO DAILY 11/10/23 11/10/23 [Acidophilus] Losartan Potassium 1 tab PO DAILY 11/10/23 11/10/23 Losartan [Cozaar] 100 mg PO DAILY #30 tablet 11/10/23 Memantine [Namenda] 10 mg PO BID 11/10/23 11/10/23 Metoprolol Succinate [Toprol Xl] 1 tab PO DAILY 11/10/23 11/10/23 Mv-Min/Folic/K1/Lycopen/Lutein 1 tab PO DAILY 11/10/23 11/10/23 [Centrum Silver Men Tablet] Sertraline [Zoloft] 1 tab PO DAILY 11/10/23 11/10/23 - Allergies Allergies/Adverse Reactions: Allergies Allergy/AdvReac Type Severity Reaction Status Date / Time codeine Allergy Anaphylaxis Verified 11/10/23 18:42 Penicillins Allergy Anaphylaxis Verified 11/10/23 18:42 Sulfa (Sulfonamide Allergy Anaphylaxis Verified 11/10/23 18:42 Antibiotics) - Social History Does the pt smoke?: No Smoking Status: Never smoker Does the pt drink ETOH?: Yes ETOH Use: Wine Does the pt have substance abuse?: No PD ED PE NORMAL - Vitals Vital signs reviewed: Yes - General General: Other (Alert and oriented to person but not place or time) - Cardiac Cardiac: RRR, No murmur - Respiratory Respiratory: No respiratory distress, Clear bilaterally - Abdomen Abdomen: Non tender, Non distended - Neuro Neuro: No motor deficit, No sensory deficit Eye Opening: Spontaneous Motor: Obeys Commands Results - Vitals Vitals: Vital Signs - 24 hr 11/10/23 18:29 Temperature 98.3 C H Heart Rate 69 Respiratory 14 Rate Blood Pressure 200/94 H O2 Saturation 94 Oxygen O2 Source Room air PD Medical Decision Making - ED course ED course: 83-year-old woman with asymptomatic elevated blood pressure in the setting of recent diagnosis of COVID. Will increase her losartan. Clinically there is no evidence of endorgan damage. Discussed with son by phone. Her son did want her to be on paxlovid, we ordered the renal dose given prior labs. Departure - Departure Disposition: 01 Home, Self Care Clinical Impression: Hypertension Qualifiers: Hypertension type: primary hypertension Qualified Code(s): I10 - Essential (primary) hypertension Condition: Stable Record reviewed to determine appropriate education?: Yes Instructions: ED HTN Established Prescriptions: Losartan [Cozaar] 100 mg PO DAILY #30 tablet Comments: She was seen here today for elevated blood pressures. It should be checked once a day at the facility, if it continues to run high her primary care physician should modulate her medications further, otherwise we are increasing her losartan up to 100 mg a day and she did receive a dose here. She should follow-up with her doctor within the week regardless. Forms: PCP List
[2023-11-10] MEDS: LOSARTAN 50 MG TABLET PO STA (18:53)
[2023-11-10] MEDS: PAXLOVID PO SCH (19:49)
[2023-11-10 20:47] VITALS: BP 156/83; O2SAT 97
== END 2023-11-10 20:44 | disposition home or self-care (01) ==
LOC: ED 18:27
DX: I10 Essential (primary) hypertension (principal); F03.90 Unspecified dementia, unspecified severity, without behavioral disturbance, psychotic disturbance, mood disturbance, and anxiety; Z79.899 Other long term (current) drug therapy; Z79.82 Long term (current) use of aspirin
CPT/HCPCS: 99283; 99284; A9270

== ENCOUNTER 2023-11-10 20:43 | Outpatient (CLI) | payer MEDICARE, OTHER | END 2023-11-10 20:44 | disposition home or self-care (01) | LOC: EMS 20:43 | PROVIDERS: ATTEND Emergency Medicine | DX: U07.1 COVID-19 (principal) | CPT/HCPCS: A0425; A0428 ==

== ENCOUNTER 2023-11-15 07:15 | Outpatient (CLI) | payer MEDICARE, OTHER | END 2023-11-15 23:59 | disposition EMS.NT | LOC: EMS 07:15 | DX: Z04.3 Encounter for examination and observation following other accident (principal); W19.XXXA Unspecified fall, initial encounter; Y92.193 Bedroom in other specified residential institution as the place of occurrence of the external cause; I10 Essential (primary) hypertension ==

== ENCOUNTER 2024-03-10 17:07 | Outpatient (CLI) | payer MEDICARE, OTHER | END 2024-03-10 17:08 | disposition critical access hospital (66) | LOC: EMS 17:07 | DX: N39.0 Urinary tract infection, site not specified (principal); F03.C0 Unspecified dementia, severe, without behavioral disturbance, psychotic disturbance, mood disturbance, and anxiety | CPT/HCPCS: A0425; A0429 ==

== ENCOUNTER 2024-03-10 17:28 | Emergency (ER) | payer MEDICARE, OTHER ==
[2024-03-10 17:44] VITALS: O2SAT 100
--- NOTE | 2024-03-10 18:24 | ED Physician Documentation ---
PD HPI FEMALE - Stated complaint Stated Complaint: - Chief complaint Chief Complaint: UTI - Additional information Additional information: 83-year-old female with history of hypertension, advanced dementia presents emergency department for [facility] living facility for concerns of urinary tract infection. Patient is unable to contribute much to history but she was sent here because the provider at [facility] found patient to have a urinary tract infection and for some reason was not able to or did not order antibiotics and so [facility] staff sent patient to the emergency department for antibiotic prescription. Patient denies CVA tenderness no known fevers or chills no nausea or vomiting PD PAST MEDICAL HISTORY - Past Medical History Past Medical History: Yes Cardiovascular: Hypertension, Other Neuro: Dementia - Past Surgical History Past Surgical History: No - Present Medications Home Medications: Ambulatory Orders Medication Instructions Recorded Confirmed Ondansetron Odt [Zofran] 4 mg TL Q6H PRN #10 tablet 12/13/22 11/10/23 Acetaminophen [Tylenol] 1 tab PO DAILY 11/10/23 11/10/23 Aspirin [Aspirin Regimen] 1 tab PO DAILY 11/10/23 11/10/23 Atorvastatin [Lipitor] 1 tab PO DAILY 11/10/23 11/10/23 Cyanocobalamin (Vitamin B-12) 1 tab PO DAILY 11/10/23 11/10/23 [Vitamin B12] Ferrous Sulfate [Feosol] 1 tab PO DAILY 11/10/23 11/10/23 Lactobacillus Acidophilus 1 tab PO DAILY 11/10/23 11/10/23 [Acidophilus] Losartan Potassium 1 tab PO DAILY 11/10/23 11/10/23 Losartan [Cozaar] 100 mg PO DAILY #30 tablet 11/10/23 Memantine [Namenda] 10 mg PO BID 11/10/23 11/10/23 Metoprolol Succinate [Toprol Xl] 1 tab PO DAILY 11/10/23 11/10/23 Mv-Min/Folic/K1/Lycopen/Lutein 1 tab PO DAILY 11/10/23 11/10/23 [Centrum Silver Men Tablet] Sertraline [Zoloft] 1 tab PO DAILY 11/10/23 11/10/23 cephALEXin [Keflex] 500 mg PO BID 5 Days #10 cap 03/10/24 - Allergies Allergies/Adverse Reactions: Allergies Allergy/AdvReac Type Severity Reaction Status Date / Time codeine Allergy Anaphylaxis Verified 03/10/24 17:43 Penicillins Allergy Anaphylaxis Verified 03/10/24 17:43 Sulfa (Sulfonamide Allergy Anaphylaxis Verified 03/10/24 17:43 Antibiotics) - Social History Does the pt smoke?: No Smoking Status: Never smoker Does the pt drink ETOH?: Yes Does the pt have substance abuse?: No - POLST Patient has POLST: Yes PD ED PE NORMAL - Vitals Vital signs reviewed: Yes - General General: No acute distress, Well developed/nourished, Other (Alert and oriented to self) - HEENT HEENT: Atraumatic, PERRL - Abdomen Abdomen: Other (Suprapubic tenderness) - Back Back: No CVA TTP - Derm Derm: Normal color, Warm and dry, No rash Results - Vitals Vitals: Vital Signs - 24 hr 03/10/24 03/10/24 17:35 19:31 Temperature 36.9 C 36.2 C L Heart Rate 65 72 Respiratory 20 16 Rate Blood Pressure 172/81 H 156/72 H O2 Saturation 100 100 Oxygen O2 Source Room air - Labs Labs: Laboratory Tests 03/10/24 18:20 Urine Color YELLOW Urine Clarity HAZY Urine pH 6.0 Ur Specific [place] 1.025 Urine Protein 30 H Urine Glucose (UA) NEGATIVE Urine Ketones TRACE Urine Occult Blood LARGE H Urine Nitrite NEGATIVE Urine Bilirubin NEGATIVE Urine Urobilinogen 0.2 (NORMAL) Ur Leukocyte Esterase SMALL H Urine RBC TNTC H Urine WBC >25 H Ur Squamous Epith Cells RARE Squamous Urine Bacteria Moderate H Ur Microscopic Review INDICATED Urine Culture Comments INDICATED PD Medical Decision Making - ED course ED course: 83-year-old female presents emergency department for urinalysis. Urine is positive for leukocytes no nitrates. She was started on Keflex here in the emergency department and prescription of Keflex was sent to patient's preferred pharmacy. Urine was sent for cultures and she was notified that we will call her in a few days if she needs to change any antibiotics. All questions answered return precautions given patient does not have any CVA tenderness making me less or worried about a pyelonephritis. patient is safe for discharge at this time. Departure - Departure Disposition: 01 Home, Self Care Clinical Impression: UTI (urinary tract infection) Instructions: Urinary Tract Infecs Women Prescriptions: cephALEXin [Keflex] 500 mg PO BID 5 Days #10 cap Comments: Thank you for trusting us with your care we have found that you have a urinary tract infection we have started you on antibiotics Keflex here in the emergency department and a prescription was sent to preferred pharmacy. 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 Forms: PCP List Discharge Date/Time: 03/10/24 19:31
[2024-03-10 18:31] LABS: BILIRUBIN,URINE NEGATIVE (NEGATIVE); GLUCOSE, URINE (UA) NEGATIVE (NEGATIVE); KETONES,URINE (UA) TRACE mg/dL (NEGATIVE); LEUKOCYTE ESTERASE, URINE SMALL (NEGATIVE); NITRITE,URINE NEGATIVE (NEGATIVE); OCCULT BLOOD,URINE LARGE (NEGATIVE); PROTEIN,URINE 30 mg/dL (NEGATIVE); UROBILINOGEN,URINE 0.2 (NORMAL) E.U./dL (NORMAL)
[2024-03-10 18:32] LABS: CLARITY,URINE HAZY (CLEAR)
[2024-03-10 18:44] LABS: BACTERIA,URINE Moderate /HPF (None Seen); RBC,URINE TNTC /HPF (0-5); SQUAMOUS EPITHELIAL CELL,UR RARE Squamous (<= Few); WBC,URINE >25 /HPF (0-5)
[2024-03-10] MEDS: cephALEXin 250 MG CAPSULE PO STA (19:05)
[2024-03-10 19:34] VITALS: BP 156/72
--- NOTE | 2024-03-13 12:37 | ED Physician Documentation ---
ED Addendum - Addendum Addendum: 03/13/24 12:37 Culture reviewed, she grew out Enterococcus which would not be expected to be sensitive to the Keflex. I sent a prescription for Cipro 500 mg p.o. twice daily #14 to [facility] (she is allergic to penicillins) and asked the nurse to call to stop the Keflex and start the Cipro.
== END 2024-03-10 19:31 | disposition home or self-care (01) ==
LOC: EDUNIT# → ED 17:28
DX: N39.0 Urinary tract infection, site not specified (principal); B95.2 Enterococcus as the cause of diseases classified elsewhere; I10 Essential (primary) hypertension; F03.90 Unspecified dementia, unspecified severity, without behavioral disturbance, psychotic disturbance, mood disturbance, and anxiety; Z79.82 Long term (current) use of aspirin; Z79.899 Other long term (current) drug therapy; Z88.0 Allergy status to penicillin
CPT/HCPCS: 81001; 87077; 87086; 87181; 99283; A9270; 81003

== ENCOUNTER 2024-03-10 19:36 | Outpatient (CLI) | payer MEDICARE, OTHER | END 2024-03-10 19:37 | disposition home or self-care (01) | LOC: EMS 19:36 | PROVIDERS: ATTEND Nurse Practitioner | DX: N39.0 Urinary tract infection, site not specified (principal); R41.0 Disorientation, unspecified; Z74.01 Bed confinement status | CPT/HCPCS: A0425; A0428 ==

== ENCOUNTER 2024-04-07 16:48 | Outpatient (CLI) | payer MEDICARE, OTHER | END 2024-04-07 23:59 | disposition critical access hospital (66) | LOC: EMS 16:48 | DX: R45.1 Restlessness and agitation (principal); R45.5 Hostility; F03.90 Unspecified dementia, unspecified severity, without behavioral disturbance, psychotic disturbance, mood disturbance, and anxiety; I10 Essential (primary) hypertension; Z87.440 Personal history of urinary (tract) infections | CPT/HCPCS: A0425; A0429 ==

== ENCOUNTER 2024-04-07 17:09 | Emergency (ER) | payer MEDICARE, OTHER ==
[2024-04-07 17:22] VITALS: BP 188/82; O2SAT 98
--- NOTE | 2024-04-07 17:28 | ED Physician Documentation ---
History of Present Illness - Stated complaint Stated Complaint: - Chief complaint Chief Complaint: Neuro - Additonal information Additional information: 83-year-old pleasantly demented patient presents emergency department via EMS for UTI. Patient has history of hypertension, dementia, urinary retention, UTIs. Staff report at [facility] that patient has been acting more off than normal a UA stick was complete at [facility] and patient did test positive for urinary tract infection but provider at [facility] told her to come to the emergency department for further workup and evaluation and would not prescribe antibiotics unless patient was seen at the emergency department. Patient has no CVA tenderness and appears quite well here in the ER. PD PAST MEDICAL HISTORY - Past Medical History Past Medical History: Yes Cardiovascular: Hypertension, Other Respiratory: None Neuro: Dementia Endocrine/Autoimmune: None GI: None [employer] [employer]: None : Retention HEENT: None Derm: None - Past Surgical History Past Surgical History: No - Present Medications Home Medications: Ambulatory Orders Medication Instructions Recorded Confirmed Ondansetron Odt [Zofran] 4 mg TL Q6H PRN #10 tablet 12/13/22 11/10/23 Acetaminophen [Tylenol] 1 tab PO DAILY 11/10/23 11/10/23 Aspirin [Aspirin Regimen] 1 tab PO DAILY 11/10/23 11/10/23 Atorvastatin [Lipitor] 1 tab PO DAILY 11/10/23 11/10/23 Cyanocobalamin (Vitamin B-12) 1 tab PO DAILY 11/10/23 11/10/23 [Vitamin B12] Ferrous Sulfate [Feosol] 1 tab PO DAILY 11/10/23 11/10/23 Lactobacillus Acidophilus 1 tab PO DAILY 11/10/23 11/10/23 [Acidophilus] Losartan Potassium 1 tab PO DAILY 11/10/23 11/10/23 Losartan [Cozaar] 100 mg PO DAILY #30 tablet 11/10/23 Memantine [Namenda] 10 mg PO BID 11/10/23 11/10/23 Metoprolol Succinate [Toprol Xl] 1 tab PO DAILY 11/10/23 11/10/23 Mv-Min/Folic/K1/Lycopen/Lutein 1 tab PO DAILY 11/10/23 11/10/23 [Centrum Silver Men Tablet] Sertraline [Zoloft] 1 tab PO DAILY 11/10/23 11/10/23 Ciprofloxacin HCl [Cipro] 500 mg PO BID #14 tablet 03/13/24 cephALEXin [Keflex] 500 mg PO BID 7 Days #14 cap 04/07/24 - Allergies Allergies/Adverse Reactions: Allergies Allergy/AdvReac Type Severity Reaction Status Date / Time codeine Allergy Anaphylaxis Verified 03/10/24 17:43 Penicillins Allergy Anaphylaxis Verified 03/10/24 17:43 Sulfa (Sulfonamide Allergy Anaphylaxis Verified 03/10/24 17:43 Antibiotics) - Social History Does the pt smoke?: No Smoking Status: Never smoker Does the pt drink ETOH?: Yes Does the pt have substance abuse?: No - Immunizations Immunizations are current?: Yes - POLST Patient has POLST: Yes PD ED PE NORMAL - Vitals Vital signs reviewed: Yes - General General: No acute distress, Well developed/nourished, Other (pleasantly confused AOx1) - HEENT HEENT: Atraumatic, PERRL - Abdomen Abdomen: Normal bowel sounds, Soft, Non tender, Non distended, No organomegaly - Back Back: No CVA TTP - Derm Derm: Normal color, Warm and dry, No rash Results - Vitals Vitals: Vital Signs - 24 hr 04/07/24 17:14 Temperature 36.8 C Heart Rate 81 Respiratory 20 Rate Blood Pressure 188/82 H O2 Saturation 98 Oxygen O2 Source Room air - Labs Labs: Laboratory Tests 04/07/24 18:12 Urine Color YELLOW Urine Clarity SL. CLOUDY Urine pH 6.5 Ur Specific [place] 1.025 Urine Protein 30 H Urine Glucose (UA) NEGATIVE Urine Ketones TRACE Urine Occult Blood LARGE H Urine Nitrite POSITIVE H Urine Bilirubin NEGATIVE Urine Urobilinogen 1 (NORMAL) Ur Leukocyte Esterase MODERATE H Urine RBC TNTC H Urine WBC >25 H Ur Squamous Epith Cells FEW Squamous Urine Bacteria Moderate H Ur Microscopic Review INDICATED Urine Culture Comments INDICATED PD Medical Decision Making - ED course ED course: 83-year-old female presents emergency department for concerns from staff of UTI. Urinalysis was completed here and she has positive nitrites and leukocytes urine was sent to lab for further cultures. She was started on Keflex here in the emergency department she has no CVA tenderness making me less suspicious or concern for possible pyelonephritis. Patient is overall very well-appearing. Prescription of Keflex was sent to patient's preferred pharmacy urine was sent for further cultures they will be notified if they need to change any antibiotics patient transported back to [facility] via EMS. Departure - Departure Disposition: 01 Home, Self Care Clinical Impression: UTI (urinary tract infection) Instructions: ED UTI Cystitis Female Prescriptions: cephALEXin [Keflex] 500 mg PO BID 7 Days #14 cap Comments: Thang does have a UTI, she has been prescribed Keflex for this. She received the First dose of this here in the emergency department and we will call you in a couple days if antibiotics need to be changed based on urine cultures. Please come back to the ER if she started develop any fevers or chills or complaining of any abdominal pain or back pain. Forms: PCP List Discharge Date/Time: 04/07/24 20:25
[2024-04-07 18:19] LABS: BILIRUBIN,URINE NEGATIVE (NEGATIVE); CLARITY,URINE SL. CLOUDY (CLEAR); GLUCOSE, URINE (UA) NEGATIVE (NEGATIVE); KETONES,URINE (UA) TRACE mg/dL (NEGATIVE); LEUKOCYTE ESTERASE, URINE MODERATE (NEGATIVE); NITRITE,URINE POSITIVE (NEGATIVE); OCCULT BLOOD,URINE LARGE (NEGATIVE); PH,URINE 6.5 PH (5.0-7.5); PROTEIN,URINE 30 mg/dL (NEGATIVE); UROBILINOGEN,URINE 1 (NORMAL) E.U./dL (NORMAL)
[2024-04-07 18:21] LABS: BACTERIA,URINE Moderate /HPF (None Seen); RBC,URINE TNTC /HPF (0-5); SQUAMOUS EPITHELIAL CELL,UR FEW Squamous (<= Few); WBC,URINE >25 /HPF (0-5)
[2024-04-07] MEDS: cephALEXin 250 MG CAPSULE PO STA (19:09)
--- NOTE | 2024-04-10 11:35 | ED Physician Documentation ---
ED Addendum - Addendum Addendum: 04/10/24 11:34 Patient's urine culture came back positive for E. coli and Enterococcus. Is sensitive to Macrobid. Will change to this. Departure - Departure Disposition: 01 Home, Self Care Clinical Impression: UTI (urinary tract infection) Qualifiers: Urinary tract infection type: acute cystitis Hematuria presence: without hematuria Qualified Code(s): N30.00 - Acute cystitis without hematuria Condition: Good Instructions: ED UTI Cystitis Female Prescriptions: cephALEXin [Keflex] 500 mg PO BID 7 Days #14 cap Nitrofurantoin [Macrobid] 100 mg PO BID #10 cap Comments: Thang does have a UTI, she has been prescribed Keflex for this. She received the First dose of this here in the emergency department and we will call you in a couple days if antibiotics need to be changed based on urine cultures. Please come back to the ER if she started develop any fevers or chills or complaining of any abdominal pain or back pain. Forms: PCP List Discharge Date/Time: 04/07/24 20:25
== END 2024-04-07 20:25 | disposition home or self-care (01) ==
LOC: EDUNIT# → ED 17:09
DX: N30.00 Acute cystitis without hematuria (principal); F03.90 Unspecified dementia, unspecified severity, without behavioral disturbance, psychotic disturbance, mood disturbance, and anxiety
CPT/HCPCS: 81001; 81003; 87077; 87086; 87181; 99283

== ENCOUNTER 2024-04-07 20:36 | Outpatient (CLI) | payer MEDICARE, OTHER | END 2024-04-07 23:59 | disposition home or self-care (01) | LOC: EMS 20:36 | PROVIDERS: ATTEND Nurse Practitioner | DX: N39.0 Urinary tract infection, site not specified (principal); F03.90 Unspecified dementia, unspecified severity, without behavioral disturbance, psychotic disturbance, mood disturbance, and anxiety; R41.0 Disorientation, unspecified | CPT/HCPCS: A0425; A0428 ==

== ENCOUNTER 2024-05-01 16:00 | Outpatient (CLI) | payer MEDICARE, OTHER | END 2024-05-01 23:59 | disposition critical access hospital (66) | LOC: EMS 16:00 | DX: N39.0 Urinary tract infection, site not specified (principal) | CPT/HCPCS: A0425; A0429 ==

== ENCOUNTER 2024-05-01 16:17 | Emergency (ER) | payer MEDICARE, OTHER ==
--- NOTE | 2024-05-01 16:21 | ED Physician Documentation ---
History of Present Illness - Stated complaint Stated Complaint: - Additonal information Additional information: Patient is an 83-year-old female presenting by EMS from [facility] after having persistent urinary symptoms and testing positive for UTI at [facility]. Patient has past medical history remarkable for dementia and hypertension. She presents to the emergency department with persistent UTI testing that is positive despite taking ciprofloxacin 1 week ago and remaining positive. Patient was seen here most recently on 04/07 started on Keflex for positive UTI but switched to Macrobid on the after cultures came back showing resistance. Patient grew E. coli and Enterococcus. Per facility patient recently finished a course of ciprofloxacin but continues to test positive for UTI. They would like a urine test and culture here in the emergency department. Patient otherwise feeling well. She is in no acute distress on arrival. 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 : Retention HEENT: None Derm: None - Past Surgical History Past Surgical History: No - Present Medications Home Medications: Ambulatory Orders Medication Instructions Recorded Confirmed Ondansetron Odt [Zofran] 4 mg TL Q6H PRN #10 tablet 12/13/22 05/01/24 Acetaminophen [Tylenol] 1 tab PO DAILY 11/10/23 05/01/24 Aspirin [Aspirin Regimen] 1 tab PO DAILY 11/10/23 05/01/24 Losartan [Cozaar] 100 mg PO DAILY #30 tablet 11/10/23 05/01/24 Memantine [Namenda] 10 mg PO BID 11/10/23 05/01/24 Metoprolol Succinate [Toprol Xl] 1 tab PO DAILY 11/10/23 05/01/24 Mv-Min/Folic/K1/Lycopen/Lutein 1 tab PO DAILY 11/10/23 05/01/24 [Centrum Silver Men Tablet] Nitrofurantoin [Macrobid] 1 cap PO BID #10 cap 05/01/24 - Allergies Allergies/Adverse Reactions: Allergies Allergy/AdvReac Type Severity Reaction Status Date / Time codeine Allergy Anaphylaxis Verified 05/01/24 16:27 Penicillins Allergy Anaphylaxis Verified 05/01/24 16:27 Sulfa (Sulfonamide Allergy Anaphylaxis Verified 05/01/24 16:27 Antibiotics) - Social History Does the pt smoke?: No Smoking Status: Never smoker Does the pt drink ETOH?: Yes Does the pt have substance abuse?: No - Immunizations Immunizations are current?: Yes - POLST Patient has POLST: Yes PD ED PE NORMAL - Vitals Vital signs reviewed: Yes - General General: Alert and oriented X 3 - HEENT HEENT: Atraumatic - Neck Neck: Supple, no meningeal sign - Cardiac Cardiac: RRR, No murmur, No gallop, No rub - Respiratory Respiratory: No respiratory distress, Clear bilaterally - Abdomen Abdomen: Normal bowel sounds, Non tender - Back Back: No CVA TTP - Derm Derm: Normal color, Warm and dry, No rash - Neuro Neuro: Other (Patient has history of dementia at baseline mental status ANO x 1. Patient ambulated here in emergency department with walker without difficulty no signs of significant weakness or fatigue no unilateral weakness or numbness or tingling.) Eye Opening: Spontaneous Motor: Obeys Commands Verbal: Confused GCS Score: 14 Results - Vitals Vitals: Vital Signs - 24 hr 05/01/24 16:22 Temperature 36.6 C Heart Rate 66 Respiratory 20 Rate Blood Pressure 185/92 H O2 Saturation 100 Oxygen O2 Source Room air - Labs Labs: Laboratory Tests 05/01/24 16:43 Urine Color LIGHT YELLOW Urine Clarity CLOUDY Urine pH 6.5 Ur Specific [place] 1.010 Urine Protein NEGATIVE Urine Glucose (UA) NEGATIVE Urine Ketones NEGATIVE Urine Occult Blood MODERATE H Urine Nitrite POSITIVE H Urine Bilirubin NEGATIVE Urine Urobilinogen 0.2 (NORMAL) Ur Leukocyte Esterase LARGE H Urine RBC 6-10 H Urine WBC >25 H Urine WBC Clumps PRESENT Ur Squamous Epith Cells FEW Squamous Urine Bacteria Many H Ur Microscopic Review INDICATED Urine Culture Comments INDICATED PD Medical Decision Making - ED course Complexity details: reviewed old records, reviewed results, re-evaluated patient ED course: Patient is a 83-year-old female presenting to the emergency department with persistently positive urine analysis. Patient was seen here about a month ago for similar symptoms her urine culture at that time grew out E. coli and Enterococcus she was switched from Keflex to Macrobid. Patient had repeat urine analysis done earlier this week with positive UTI and was on ciprofloxacin. Patient has been on this medication since 831. She continues to have positive UTI according to the facility and they sent her here for further evaluation. Patient appears in no acute distress she is eating and drinking well here in the emergency department no signs of CVA tenderness she is able to ambulate with walker no signs of weakness patient is has dementia at baseline difficult to assess altered mental status but does not appear irritable or significantly fatigued. Urine analysis here in emergency department does show findings of UTI we will start patient on Macrobid and will have patient stop taking ciprofloxacin at facility given previous Enterococcus and E. coli were susceptible to this medication. Patient is safe for discharge home at this time instructed facility to have her return with any fevers back pain nausea vomiting unable to tolerate oral antibiotic or any other new or worsening symptoms. Currently pending culture we will call facility for updated results when they are available. Or if there is any need to change antibiotic. Departure - Departure Disposition: 01 Home, Self Care Clinical Impression: UTI (urinary tract infection) Condition: Good Instructions: Urinary Tract Infecs Women Comments: Start patient on Macrobid discontinue ciprofloxacin at this time we will culture urine and call on results if there is any resistance on urine analysis. Have her return with any fevers nausea vomiting unable to tolerate oral antibiotics back pain or any other new or worsening symptoms. She appears stable here in the emergency department urine analysis was obtained and did show concerning findings for UTI. Patient's previous UTI was susceptible to Macrobid which is why I have chosen to start her on this antibiotic today.
[2024-05-01 16:29] VITALS: O2SAT 100
[2024-05-01 16:51] LABS: BILIRUBIN,URINE NEGATIVE (NEGATIVE); GLUCOSE, URINE (UA) NEGATIVE (NEGATIVE); KETONES,URINE (UA) NEGATIVE (NEGATIVE); LEUKOCYTE ESTERASE, URINE LARGE (NEGATIVE); NITRITE,URINE POSITIVE (NEGATIVE); OCCULT BLOOD,URINE MODERATE (NEGATIVE); PH,URINE 6.5 PH (5.0-7.5); PROTEIN,URINE NEGATIVE (NEGATIVE); UROBILINOGEN,URINE 0.2 (NORMAL) E.U./dL (NORMAL)
[2024-05-01 16:56] LABS: CLARITY,URINE CLOUDY (CLEAR)
[2024-05-01 16:59] LABS: BACTERIA,URINE Many /HPF (None Seen); SQUAMOUS EPITHELIAL CELL,UR FEW Squamous (<= Few); WBC CLUMPS,URINE PRESENT; WBC,URINE >25 /HPF (0-5)
[2024-05-01] MEDS: NITROFURANTOIN MACRO 100 MG CAPSULE PO STA (18:07)
[2024-05-01 19:47] VITALS: BP 160/90
== END 2024-05-01 19:40 | disposition home or self-care (01) ==
LOC: EDUNIT# → ED 16:17
DX: N39.0 Urinary tract infection, site not specified (principal)
CPT/HCPCS: 81001; 87086; 87181; 99283; A9270; 81003

== ENCOUNTER 2024-05-01 19:37 | Outpatient (CLI) | payer MEDICARE, OTHER | END 2024-05-01 19:38 | disposition home or self-care (01) | LOC: EMS 19:37 | PROVIDERS: ATTEND Physician Assistant | DX: F03.90 Unspecified dementia, unspecified severity, without behavioral disturbance, psychotic disturbance, mood disturbance, and anxiety (principal); R41.0 Disorientation, unspecified | CPT/HCPCS: A0425; A0428 ==

== ENCOUNTER 2024-05-13 17:56 | Outpatient (CLI) | payer MEDICARE, OTHER | END 2024-05-13 23:59 | disposition critical access hospital (66) | LOC: EMS 17:56 | DX: R21 Rash and other nonspecific skin eruption (principal) | CPT/HCPCS: A0425; A0429 ==

== ENCOUNTER 2024-05-13 18:16 | Emergency (ER) | payer MEDICARE, OTHER ==
[2024-05-13 18:26] VITALS: BP 156/80
--- NOTE | 2024-05-13 19:07 | ED Physician Documentation ---
PD HPI SKIN - Stated complaint Stated Complaint: RASH ON BACK - Chief complaint Chief Complaint: Wound - Additional information Additional information: 83-year-old female presents emergency department via EMS for concerns of rash. Patient is unable to contribute to history she is very demented alert and oriented to self only. She says that she thinks she was sent here because of bad behavior. When I call [facility] and they said that patient's private caregiver noticed a very mild rash to her face and abdomen and when they called the patient's power of tax attorney the power of tax attorney asked that the patient be brought into the emergency department further evaluation. She has no shortness of breath no signs of anaphylaxis very very mild rash to her abdomen and barely visible rash to face PD PAST MEDICAL HISTORY - Past Medical History Cardiovascular: Hypertension, Other Respiratory: None Neuro: Dementia Endocrine/Autoimmune: None GI: None ICU NURSE: None : Retention HEENT: None Derm: None - Past Surgical History Past Surgical History: No - Present Medications Home Medications: Ambulatory Orders Medication Instructions Recorded Confirmed Ondansetron Odt [Zofran] 4 mg TL Q6H PRN #10 tablet 12/13/22 05/01/24 Acetaminophen [Tylenol] 1 tab PO DAILY 11/10/23 05/01/24 Aspirin [Aspirin Regimen] 1 tab PO DAILY 11/10/23 05/01/24 Losartan [Cozaar] 100 mg PO DAILY #30 tablet 11/10/23 05/01/24 Memantine [Namenda] 10 mg PO BID 11/10/23 05/01/24 Metoprolol Succinate [Toprol Xl] 1 tab PO DAILY 11/10/23 05/01/24 Mv-Min/Folic/K1/Lycopen/Lutein 1 tab PO DAILY 11/10/23 05/01/24 [Centrum Silver Men Tablet] Nitrofurantoin [Macrobid] 1 cap PO BID #10 cap 05/01/24 - Allergies Allergies/Adverse Reactions: Allergies Allergy/AdvReac Type Severity Reaction Status Date / Time codeine Allergy Anaphylaxis Verified 05/13/24 18:22 Penicillins Allergy Anaphylaxis Verified 05/13/24 18:22 Sulfa (Sulfonamide Allergy Anaphylaxis Verified 05/13/24 18:22 Antibiotics) - Social History Does the pt smoke?: No Smoking Status: Never smoker Does the pt drink ETOH?: Yes Does the pt have substance abuse?: No - Immunizations Immunizations are current?: Yes - POLST Patient has POLST: Yes PD ED PE NORMAL - Vitals Vital signs reviewed: Yes - General General: Alert and oriented X 3, Well developed/nourished - Cardiac Cardiac: RRR - Respiratory Respiratory: No respiratory distress, Clear bilaterally - Abdomen Abdomen: Normal bowel sounds, Soft - Derm Derm: Other (barely visible rash to lower face, maybe 4-5 spots circular, mild erythema. Scattered flat rash to abdomen, mild erythema, no itching) Results - Vitals Vitals: Vital Signs - 24 hr 05/13/24 05/13/24 18:22 20:28 Temperature 36.5 C 36.5 C Heart Rate 72 72 Respiratory 18 16 Rate Blood Pressure 156/80 H O2 Saturation 96 97 Oxygen O2 Source Room air PD Medical Decision Making - ED course ED course: 83-year-old female presents emergency department for rash and there concerning for anaphylaxis. Patient has no hypotension airway is patent intact pharynx benign she is breathing without any difficulty and no shortness of breath and is showing absolutely no signs of anaphylaxis. She has a barely visible rash to her face and a very mild subtle rash to her abdomen and nowhere else on her body. Small flat round circular patches. Patient has hydrocortisone at home she denies any irritation or itching to this rash. They are told to apply hydrocortisone on it when she goes home given the mildness of the rash there is no further interventions warranted here in the emergency department. I called patient's power of tax attorney and informed him of the findings and he is very reassured and patient is told to follow-up with [facility] wel[facility] outpatient for further evaluation of this.Return precautions given patient safe for discharge. Departure - Departure Disposition: 01 Home, Self Care Clinical Impression: Rash Instructions: ED Dermatitis Contact Comments: Thang is not showing any signs or symptoms of anaphylaxis or allergic reaction. She can follow-up with your primary care provider outpatient for further investigation if this is bothering her and you can apply topical hydrocortisone if she appears to be scratched to get it. If she started develop any shortness of breath or respiratory distress please bring her back to the emergency department for further evaluation. Forms: PCP List
[2024-05-13 20:38] VITALS: O2SAT 97
== END 2024-05-13 21:18 | disposition home or self-care (01) ==
LOC: EDUNIT# → ED 18:16
DX: R21 Rash and other nonspecific skin eruption (principal); I10 Essential (primary) hypertension; F03.90 Unspecified dementia, unspecified severity, without behavioral disturbance, psychotic disturbance, mood disturbance, and anxiety; Z79.82 Long term (current) use of aspirin; Z79.899 Other long term (current) drug therapy
CPT/HCPCS: 99283

== ENCOUNTER 2024-05-13 21:19 | Outpatient (CLI) | payer MEDICARE, OTHER | END 2024-05-13 23:59 | disposition home or self-care (01) | LOC: EMS 21:19 | PROVIDERS: ATTEND Nurse Practitioner | DX: R21 Rash and other nonspecific skin eruption (principal); F03.90 Unspecified dementia, unspecified severity, without behavioral disturbance, psychotic disturbance, mood disturbance, and anxiety; R41.0 Disorientation, unspecified; Z74.01 Bed confinement status | CPT/HCPCS: A0425; A0428 ==

== ENCOUNTER 2024-05-16 15:24 | Outpatient (CLI) | payer MEDICARE, OTHER | END 2024-05-16 23:59 | disposition critical access hospital (66) | LOC: EMS 15:24 | DX: K59.00 Constipation, unspecified (principal); R10.9 Unspecified abdominal pain | CPT/HCPCS: A0425; A0429 ==

== ENCOUNTER 2024-05-16 15:42 | Emergency (ER) | payer MEDICARE, OTHER ==
[2024-05-16 15:50] VITALS: O2SAT 100
--- NOTE | 2024-05-16 16:50 | ED Physician Documentation ---
History of Present Illness - Stated complaint Stated Complaint: CONSTIPATION - Chief complaint Chief Complaint: Abd Pain - Additonal information Additional information: 83-year-old female with advanced dementia, hypertension, urinary retention presents emergency department for concerns of constipation from patient's caregiver. I called the patient's son, Epifanio to get more information and history he said that the patient's caregiver called him because they were quite concerned about patient having constipation she is apparently trying to have a bowel movement today at [facility] and was having difficulty doing so and they were worried that she was having stool obstruction in her rectum. No nausea or vomiting patient says that she is comfortable and says that she is not feeling like she is constipated at all and has no complaints no abdominal pain patient is well-appearing and overall appears comfortable. 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 : Retention HEENT: None Derm: None - Past Surgical History Past Surgical History: No - Present Medications Home Medications: Ambulatory Orders Medication Instructions Recorded Confirmed Ondansetron Odt [Zofran] 4 mg TL Q6H PRN #10 tablet 12/13/22 05/01/24 Acetaminophen [Tylenol] 1 tab PO DAILY 11/10/23 05/01/24 Aspirin [Aspirin Regimen] 1 tab PO DAILY 11/10/23 05/01/24 Losartan [Cozaar] 100 mg PO DAILY #30 tablet 11/10/23 05/01/24 Memantine [Namenda] 10 mg PO BID 11/10/23 05/01/24 Metoprolol Succinate [Toprol Xl] 1 tab PO DAILY 11/10/23 05/01/24 Mv-Min/Folic/K1/Lycopen/Lutein 1 tab PO DAILY 11/10/23 05/01/24 [Centrum Silver Men Tablet] Nitrofurantoin [Macrobid] 1 cap PO BID #10 cap 05/01/24 - Allergies Allergies/Adverse Reactions: Allergies Allergy/AdvReac Type Severity Reaction Status Date / Time codeine Allergy Anaphylaxis Verified 05/16/24 15:46 Penicillins Allergy Anaphylaxis Verified 05/16/24 15:46 Sulfa (Sulfonamide Allergy Anaphylaxis Verified 05/16/24 15:46 Antibiotics) - Social History Does the pt smoke?: No Smoking Status: Never smoker Does the pt drink ETOH?: Yes Does the pt have substance abuse?: No - Immunizations Immunizations are current?: Yes - POLST Patient has POLST: Yes PD ED PE NORMAL - Vitals Vital signs reviewed: Yes - General General: No acute distress, Well developed/nourished, Other (A)) - Abdomen Abdomen: Normal bowel sounds, Soft, Non tender, Non distended, No organomegaly PD ED PE EXPANDED - Rectal Rectal: Normal Tone, Boom Boss present (Tech Mildred present), Other (no stool present in rectum) Results - Vitals Vitals: Vital Signs - 24 hr 05/16/24 05/16/24 15:46 18:27 Temperature 36.5 C 36.5 C Heart Rate 98 88 Respiratory 16 16 Rate Blood Pressure 160/71 H 140/70 H O2 Saturation 100 100 Oxygen O2 Source Room air PD Medical Decision Making - ED course ED course: 83-year-old female presents emergency department for concerns of constipation primary caregiver. I have completed a rectal exam with geology techniciankurt Levy at bedside and there was no stool obstruction in her rectum no stool burden in her rectum very very very small amount of stool was present but nothing that needed to be extracted. Normal rectal tone she has no abdominal pain no nausea vomiting so do not believe that she is experiencing a small bowel obstruction. I called the son Epifanio to let him know he was reassured patient is being sent back to [place] via EMS due to her dementia and on her discharge paperwork it clearly states that patient should be started on a stool softener if concerns of ongoing constipation. Return precautions given patient safe for discharge. Departure - Departure Disposition: 01 Home, Self Care Clinical Impression: Constipation Instructions: ED Constipation Comments: Thang has been evaluated for constipation she has absolutely no signs of fecal impaction if you are worried about constipation go ahead and start her on a stool softener daily or prune juice and increase water intake. Forms: PCP List Discharge Date/Time: 05/16/24 18:27
[2024-05-16] MEDS: MINERAL OIL ENEMA 133 ML BOTTLE RC STA (18:06)
[2024-05-16 18:31] VITALS: BP 140/70
== END 2024-05-16 18:27 | disposition home or self-care (01) ==
LOC: EDUNIT# → ED 15:42
DX: K59.00 Constipation, unspecified (principal); I10 Essential (primary) hypertension; Z79.82 Long term (current) use of aspirin; Z79.899 Other long term (current) drug therapy
CPT/HCPCS: 99282; 99283; A9270

== ENCOUNTER 2024-05-16 18:28 | Outpatient (CLI) | payer MEDICARE, OTHER | END 2024-05-16 18:29 | disposition home or self-care (01) | LOC: EMS 18:28 | PROVIDERS: ATTEND Nurse Practitioner | DX: F03.90 Unspecified dementia, unspecified severity, without behavioral disturbance, psychotic disturbance, mood disturbance, and anxiety (principal); R41.0 Disorientation, unspecified | CPT/HCPCS: A0425; A0428 ==